=== PATIENT | female | born 1940 | race Caucasian/White ===

== ENCOUNTER 2018-11-03 15:41 | Inpatient (IN) | payer MEDICARE, BC ==
[~2018-11-03] VITALS: Ht 162.6 cm; Wt 70.1 kg
[~2018-11-03 15:41] MED LIST: ASPI-1169 PO; CYAN500T65 PO; ESCI20TA PO; GABA-532 PO; ISOS30TA9 PO; METF-440 PO; METO-356 PO; NITR50CA PO; OXYB10TA4 PO; RANI-655 PO; RANI150C4 PO; RANI300T7 PO; SIMV40TA2 PO
--- NOTE | 2018-11-03 16:07 | NUR ---
PATIENT LISETH RA FROM HOME WITH REPORT OF SYNCOPAL EPISODE, FELL WITH RIGHT ARM/SHOULDER PAIN. PATIENT A/O X 3, NO ACUTE DISTRESS. DENIES ANY PAIN OR DISCOMFORT AT THIS TIME. DENIES ANY PAIN ON ARMS. SEEN AND EXAMINED BY DR GALE. PATIENT RESTING COMFORTABLY ON BED. WILL CONTINUE TO MONITOR
--- NOTE | 2018-11-03 16:07 | NUR ---
Per Friend Christina "I spoke to her around 1130am was outside her door around 230 knocking but had no answer another neighbor had keys we opened the door and found her in the toilet lodged between door and toilet." Phone #[phone]
--- NOTE | 2018-11-03 16:14 | NUR ---
IV LINE ESTABLISHED ON RIGHT AC g18. BLOOD COLLECTED AND SENT TO LAB
[2018-11-03 16:17] LABS: BASOPHILS # (AUTO) 0.1 /CMM (0.0-0.2); BASOPHILS % (AUTO) 1.2 % (0.0-2.0); EOSINOPHILS % (AUTO) 1.3 % (0.0-6.0); HEMATOCRIT 39 % (33-45); HEMOGLOBIN 12.6 g/dL (11.5-14.8); LYMPHOCYTES % (AUTO) 14.4 % (20.0-44.0); MEAN CORPUSCULAR HGB CONC 33 g/dl (31.0-36.0); MEAN CORPUSCULAR VOLUME 89 fL (82-100); MONOCYTES # (AUTO) 0.5 /CMM (0.1-1.30); MONOCYTES % (AUTO) 7.9 % (2.0-12.0); NEUTROPHILS # (AUTO) 5.2 /CMM (1.8-8.9); NEUTROPHILS % (AUTO) 75.2 % (43.0-81.0); PLATELET COUNT (AUTO) 220 /CMM (150-450); RED BLOOD CELL COUNT(AUTO) 4.36 MIL/uL (4.0-5.2); WHITE BLOOD COUNT (AUTO) 6.9 K/uL (4.3-11.0)
[2018-11-03 16:28] LABS: CALCIUM, SERUM 9.2 mg/dL (8.5-10.1); CARBON DIOXIDE 31 mmol/L (21-32); CHLORIDE 106 mmol/L (98-107); GLUCOSE 115 mg/dL (74-106); POTASSIUM 4.2 mmol/L (3.5-5.1); SODIUM SERUM 142 mmol/L (136-145); UREA NITROGEN, BLOOD 17 mg/dL (7-18)
[2018-11-03 16:34] LABS: ALANINE AMINOTRANSFERASE 33 U/L (12-78); ALBUMIN 3.4 g/dL (3.4-5.0); ALKALINE PHOSPHATASE 85 U/L (46-116); ASPARTATE AMINOTRANSFERASE 24 U/L (15-37); BILIRUBIN,DIRECT 0.1 mg/dL (0.0-0.2); BILIRUBIN,TOTAL 0.3 mg/dL (0.2-1.0)
[2018-11-03] MEDS ORDERED: METF500T7 PO (18:11)
[2018-11-03] MEDS ORDERED: IPRA3AMP23 INH (18:12)
[2018-11-03] MEDS ORDERED: LEVO50TA8 PO (18:12)
[2018-11-03] MEDS ORDERED: DONE10TA44 PO (18:12)
[2018-11-03] MEDS ORDERED: OMEP40CA37 PO (18:12)
[2018-11-03] MEDS ORDERED: MEMA10TA21 PO (18:12)
--- NOTE | 2018-11-03 18:12 | NUR ---
DR RADHA MURRY. AWAITING CALL BACK.
--- NOTE | 2018-11-03 18:25 | NUR ---
PATIENT RESTING INSIDE ROOM. EATING DINNER. NO ACUTE DISTRESS. DENIES ANY PAIN OR DISCOMFORT. NOTED WITH BP 163/86. DR GALE AT BEDSIDE AWARE, NO NEW ORDERS AT THIS TIME. WILL CONTINUE TO MONITOR.
--- NOTE | 2018-11-03 18:25 | NUR ---
CALLED NURSING SUP FOR BED
--- NOTE | 2018-11-03 18:41 | NUR ---
PLACED CALL TO [facility] AND GAVE REPORT TO YAMILET PANIAGUA FOR BEE
--- NOTE | 2018-11-03 18:53 | NUR ---
DR BENSON AT BEDSIDE
[2018-11-03 19:00] VITALS: BP 141/84
--- NOTE | 2018-11-03 19:02 | NUR ---
PATIENT TRANSFERRED TO [facility] VIA ACLS PROTOCOL, CONNECTED TO MONITOR. NO ACUTE DISTRESS. NO C/O PAIN OR DISCOMFORT. MD ZULETA
[2018-11-03] MEDS ORDERED: IV NS 0.9% 1,000 ML IV PRN (19:12)
[2018-11-03] MEDS ORDERED: Z GUARD REMEDY 2 OZ OINT TP PRN (19:30)
[2018-11-03] MEDS ORDERED: ONDANSETRON HCL/PF 4 MG/2 ML VIAL IVP PRN (19:30)
[2018-11-03] MEDS ORDERED: MAGNESIUM HYDROXIDE 30 ML UDC PO PRN (19:30)
[2018-11-03] MEDS ORDERED: ACETAMINOPHEN 325 MG TABLET PO PRN (19:30)
[2018-11-03] MEDS ORDERED: MAG HYDROX/AL HYDROX/SIMETH 30 ML UDC PO PRN (19:30)
[2018-11-03] MEDS ORDERED: HYDROCODONE/APAP 5/325MG 1 EACH TABLET PO PRN (19:30)
[2018-11-03] MEDS ORDERED: ZOLPIDEM TARTRATE 5 MG TABLET PO PRN (19:30)
--- NOTE | 2018-11-03 19:30 | NUR ---
RN OPEN NOTES RECEIVED PATIENT AWAKE IN BED. A/OX4. NO SIGNS OF DISTRESS OR DISCOMFORT. BREATHING EVEN AND UNLABORED. IV ACCESS IN RAC PATENT AND INTACT, NO SIGNS OF REDNESS OR INFILTRATION. ORIENTED PATIENT TO UNIT AND ROOM. ATTACHED TO TELE MONITOR WITH SR 65 NOTED. BED IN LOW LOCKED POSITION WITH SIDE RAIL X2. CALL LIGHT WITHIN REACH. WILL CONTINUE TO MONITOR.
[2018-11-03 20:00] VITALS: BP 141/84
[2018-11-03] MEDS ORDERED: OXYBUTYNIN CHLORIDE ER 5 MG TAB PO SCH (22:00)
[2018-11-03] MEDS ORDERED: SIMVASTATIN 20 MG TABLET PO SCH (22:00)
[2018-11-03] MEDS ORDERED: DONEPEZIL 5 MG TABLET PO SCH (22:00)
[2018-11-04] VITALS: BP 138/72
[2018-11-04 01:30] LABS: APPEARANCE,URINE CLEAR (CLEAR); BILIRUBIN,URINE NEGATIVE (NEGATIVE); BLOOD, URINE NEGATIVE Ery/uL (NEGATIVE); COLOR,URINE YELLOW (YELLOW); KETONES,URINE NEGATIVE (NEGATIVE); LEUKOCYTE ESTERASE ,URINE NEGATIVE (NEGATIVE); NITRITE, URINE NEGATIVE (NEGATIVE); PROTEIN,URINE NEGATIVE (NEGATIVE); UGLUCOSE NEGATIVE (NEGATIVE); UROBILINOGEN,URINE 0.2 EU/dL (0.2)
[2018-11-04 04:00] VITALS: BP 111/77
[2018-11-04 06:24] LABS: BASOPHILS # (AUTO) 0.1 /CMM (0.0-0.2); BASOPHILS % (AUTO) 1.4 % (0.0-2.0); EOSINOPHILS % (AUTO) 2.5 % (0.0-6.0); HEMATOCRIT 39 % (33-45); HEMOGLOBIN 12.8 g/dL (11.5-14.8); LYMPHOCYTES # (AUTO) 1.7 /CMM (0.8-4.8); LYMPHOCYTES % (AUTO) 28.7 % (20.0-44.0); MEAN CORPUSCULAR HGB CONC 33 g/dl (31.0-36.0); MEAN CORPUSCULAR VOLUME 88 fL (82-100); MONOCYTES # (AUTO) 0.5 /CMM (0.1-1.30); MONOCYTES % (AUTO) 8.5 % (2.0-12.0); NEUTROPHILS # (AUTO) 3.4 /CMM (1.8-8.9); NEUTROPHILS % (AUTO) 58.9 % (43.0-81.0); PLATELET COUNT (AUTO) 206 /CMM (150-450); RED BLOOD CELL COUNT(AUTO) 4.45 MIL/uL (4.0-5.2); WHITE BLOOD COUNT (AUTO) 5.8 K/uL (4.3-11.0)
--- NOTE | 2018-11-04 06:45 | NUR ---
RN CLOSING NOTES PATIENT AWAKE IN BED. A/OX4. NO SIGNS OF DISTRESS OR DISCOMFORT. BREATHING EVEN AND UNLABORED. IV ACCESS IN RAC WITH NS INFUSING, PATENT AND INTACT, NO SIGNS OF REDNESS OR INFILTRATION. ON TELE MONITORING WITH SR 55 NOTED. ALL NEEDS MET. NO SIGNIFICANT CHANGES THROUGH THE NIGHT. BED IN LOW LOCKED POSITION WITH SIDE RAIL X2. CALL LIGHT WITHIN REACH. WILL ENDORSE TO AM SHIFT FOR BEE.
[2018-11-04 06:58] LABS: ALANINE AMINOTRANSFERASE 30 U/L (12-78); ALBUMIN 3.3 g/dL (3.4-5.0); ALKALINE PHOSPHATASE 77 U/L (46-116); ASPARTATE AMINOTRANSFERASE 21 U/L (15-37); B-TYPE NATRIURETIC PEPTIDE 421 PG/ML (0-125); BILIRUBIN,TOTAL 0.4 mg/dL (0.2-1.0); CALCIUM, SERUM 8.6 mg/dL (8.5-10.1); CARBON DIOXIDE 31 mmol/L (21-32); CHLORIDE 106 mmol/L (98-107); CREATININE 0.9 mg/dL (0.6-1.3); GLUCOSE 105 mg/dL (74-106); MAGNESIUM 1.9 mg/dL (1.8-2.4); PHOSPHORUS 3.5 mg/dL (2.5-4.9); POTASSIUM 3.9 mmol/L (3.5-5.1); SODIUM SERUM 142 mmol/L (136-145); TOTAL PROTEIN, SERUM 5.9 g/dL (6.4-8.2); UREA NITROGEN, BLOOD 13 mg/dL (7-18)
[2018-11-04 07:08] LABS: CHOLESTEROL 215 mg/dL (<200); HDL CHOLESTEROL 56 mg/dL (40-60); LDL 141 mg/dL (0-99); THYROID STIMULATING HORMONE 2.488 uIU/mL (0.358-3.74); TRIGLYCERIDES 143 mg/dL (30-150)
[2018-11-04] MEDS ORDERED: PANTOPRAZOLE 40 MG TABLET.DR PO SCH (07:30)
[2018-11-04] MEDS ORDERED: LEVOTHYROXINE SODIUM 50 MCG TABLET PO SCH (07:30)
--- NOTE | 2018-11-04 07:57 | NUR ---
RN OPENING NOTES PT AWAKE AND RESTING IN BED. NO COMPLAINTS OF PAIN, SOB OR DISTRESS AT THIS TIME. PT TELE MONITORED NSR/GABRIEL. PER PATIENT "READY TO GO HOME". PT HAS RIGHT AC #18 IV INTACT AND RUNNING NS @75 ML/HR. SAFETY PRECAUTIONS IN PLACE, BED IN LOWEST LOCKED POSITION, X2 SIDE RAILS UP AND CALL LIGHT WITHIN REACH, WILL CONTINUE TO MONITOR.
[2018-11-04 08:00] VITALS: BP 182/87
[2018-11-04 08:51] VITALS: BP 159/83
[2018-11-04] MEDS ORDERED: METOPROLOL SUCCINATE 25 MG TAB.SR.24H PO SCH (09:00)
[2018-11-04] MEDS ORDERED: ESCITALOPRAM OXALATE (10 MG) 10 MG TABLET PO SCH (09:00)
[2018-11-04] MEDS ORDERED: ASPIRIN 81 MG TAB.CHEW PO SCH (09:00)
[2018-11-04] MEDS ORDERED: MEMANTINE HCL 5 MG TABLET PO SCH (09:00)
[2018-11-04] MEDS ORDERED: VALSARTAN 80 MG TABLET PO SCH (09:00)
[2018-11-04] MEDS ORDERED: CYANOCOBALAMIN 500 MCG TABLET PO SCH (09:00)
[2018-11-04] MEDS ORDERED: METFORMIN XR 500 MG TAB.SR.24H PO SCH (09:00)
[2018-11-04] MEDS ORDERED: IPRATROPIUM NEB FS 0.5 MG/2.5 ML AMPUL.NEB NEB SCH (09:00)
[2018-11-04] MEDS ORDERED: ALBUTEROL FS 2.5 MG/0.5 ML VIAL.NEB NEB SCH (09:00)
--- NOTE | 2018-11-04 10:38 | NUR ---
HOSE WRAPPER NOTES PT STABLE AT DISCHARGE. ALL DISCHARGE PAPERWORK DISCUSSED, SIGNED, COPIED, AND GIVEN TO THE PATIENT. ALL PATIENT BELONGINGS TAKEN WITH THE PATIENT. ID AND IV REMOVED PRIOR TO DISCHARGE. RN ACCOMPANIED PATIENT OFF THE UNIT AT 1035.
--- NOTE | 2018-11-04 16:56 | NUR ---
Patient was discharged home today. She is ambulatory and independent with adl's. She is currently on [facility] . Has good family support. Advised to f/u with pcp in 7-10days. Called [facility] homehealth x3 but calls we're disconnected. Faxed clinicals to [facility] to resume homehealth services. Addendum: 11/04/18 at 2042 by VIJI YEH RN Amended: Links added.
== END 2018-11-04 10:30 | disposition home health service (06) | DRG 74 ==
LOC: ER 15:47 → TELE 18:32
PROVIDERS: ADMIT Internal Medicine; ATTEND Internal Medicine
DX: G90.8 Other disorders of autonomic nervous system (principal); I25.10 Atherosclerotic heart disease of native coronary artery without angina pectoris; E78.5 Hyperlipidemia, unspecified; I10 Essential (primary) hypertension; I25.2 Old myocardial infarction; E11.42 Type 2 diabetes mellitus with diabetic polyneuropathy; K21.9 Gastro-esophageal reflux disease without esophagitis; F32.9 Major depressive disorder, single episode, unspecified; Z96.651 Presence of right artificial knee joint; Z87.891 Personal history of nicotine dependence; Z88.0 Allergy status to penicillin; R00.1 Bradycardia, unspecified; F03.90 Unspecified dementia, unspecified severity, without behavioral disturbance, psychotic disturbance, mood disturbance, and anxiety; R55 Syncope and collapse; T44.7X5A Adverse effect of beta-adrenoreceptor antagonists, initial encounter; Y92.89 Other specified places as the place of occurrence of the external cause
CPT/HCPCS: 36415; 70450-TC; 71045-TC; 72125-TC; 80048-TC; 80053-TC; 80061-TC; 80076-TC; 81000-TC; 82550-TC; 82962-TC; 83735-TC; 83880; 84100-TC; 84443-TC; 84484-TC; 85025-TC; 85730-TC; 87081-TC; 93307-TC; 93970-TC; G0378; J7030